=== PATIENT | female | born 1950 | race Caucasian/White ===

== ENCOUNTER 2024-04-18 19:03 | Inpatient (IN) | payer MEDICARE ==
[~2024-04-18] VITALS: Ht 172.7 cm; Wt 87.1 kg
[2024-04-18] MEDS: SODIUM CHLORIDE 0.9% 1,000 ML IV ONE (20:11)
[2024-04-18 20:24] LABS: BASOPHILS % 0.3 % (0.0-2.0); EOSINOPHILS % 0.1 % (0.0-5.0); HEMATOCRIT. 40.3 % (36.0-48.0); HEMOGLOBIN. 13.2 g/dL (12.0-16.0); LYMPHOCYTES % 8.7 % (20.0-50.0); MEAN CORPUSCULAR HEMOGLOBIN 28.1 pg (28.0-32.0); MEAN CORPUSCULAR HGB CONC 32.7 g/dL (31.0-37.0); MEAN CORPUSCULAR VOLUME 85.9 fL (81.0-99.0); MEAN PLATELET VOLUME 9.5 fl (7.4-10.4); MONOCYTES % 4.8 % (2.0-8.0); NEUTROPHILS % 86.1 % (40.0-76.0); PLATELET 307 x1000/uL (130-400); RED BLOOD CELL COUNT 4.68 mill/uL (4.2-5.4); RED CELL DISTRIBUTION WIDTH 16.1 % (11.6-14.6); WHITE BLOOD COUNT 8.7 x1000/uL (4.5-11.0)
[2024-04-18 20:33] LABS: CARBON DIOXIDE 25 mEq/L (21-32); CHLORIDE 98 mEq/L (98-107); POTASSIUM 3.8 mEq/L (3.5-5.1); SODIUM 133 mEq/L (136-145)
[2024-04-18 20:34] LABS: CALCIUM 11.7 mg/dL (8.7-10.4)
[2024-04-18 20:39] LABS: CREATININE 1.8 mg/dL (0.6-1.0); UREA NITROGEN BLOOD 17 mg/dL (9-23)
[2024-04-18 20:40] LABS: AMMONIA < 17 uMol/L (<32)
[2024-04-18 20:41] LABS: BETA HYDROXYBUTYRATE 3.3 mMol/L (0.0-0.3); CREATINE KINASE 22 IU/L (34-145)
[2024-04-18 20:43] LABS: THYROID STIMULATING HORMONE 3.19 uIU/mL (0.55-4.78)
[2024-04-18 20:47] LABS: ETHANOL BLOOD < 10 mg/dL (<10); GLUCOSE 452 mg/dL (70-105); TROPONIN I HIGH SENSITIVITY 44 ng/L (3.0-34)
[2024-04-18] MEDS: ASPIRIN 81MG TABLET PO NR (21:08)
[2024-04-18] MEDS ORDERED: LISI-186 PO (21:25)
[2024-04-18] MEDS ORDERED: ATOR40TA70 PO ×2 (21:25→21:43)
[2024-04-18] MEDS ORDERED: INSU100I94 SUBCUT ×2 (21:25→21:42)
[2024-04-18] MEDS ORDERED: METO25TA6 PO (21:25)
[2024-04-18] MEDS ORDERED: ISOS30TA91 PO (21:25)
[2024-04-18] MEDS ORDERED: ONDA4TAB50 PO (21:25)
[2024-04-18] MEDS ORDERED: HYDR25TA78 PO (21:25)
[2024-04-18] MEDS ORDERED: AMLO5TAB88 PO (21:25)
[2024-04-18] MEDS ORDERED: ENOX30DI4 SUBCUT ×2 (21:25→21:42)
[2024-04-18] MEDS ORDERED: INSU100I53 SUBCUT ×2 (21:25→21:42)
[2024-04-18] MEDS ORDERED: AMOX-494 PO ×2 (21:25→21:40)
[2024-04-18] MEDS ORDERED: MIRT-89 PO (21:25)
[2024-04-18] MEDS ORDERED: CLON0.1T PO ×2 (21:25→21:42)
[2024-04-18] MEDS ORDERED: HYDR50TA39 PO (21:25)
[2024-04-18] MEDS ORDERED: LEVO250T74 PO (21:25)
[2024-04-18] MEDS ORDERED: MAGNESIUM/ALUMINUM HYDROXIDE/SIMETHICONE 30ML UDC PO PRN (21:30)
[2024-04-18] MEDS ORDERED: DOCUSATE SODIUM 100MG CAPSULE PO PRN (21:30)
[2024-04-18] MEDS ORDERED: ONDANSETRON HCL 4MG/2ML INJ IV PRN (21:30)
[2024-04-18] MEDS ORDERED: IPRATROPIUM/ALBUTEROL 0.5-3(2.5)MG/3ML NEB HHN PRN (21:30)
[2024-04-18] MEDS ORDERED: ACETAMINOPHEN 325MG TABLET PO PRN (21:30)
[2024-04-18] MEDS ORDERED: DEXTROSE 50% WATER 50ML SYRINGE IV PRN (21:30)
[2024-04-18] MEDS ORDERED: CLONIDINE 0.1MG TABLET PO PRN (21:30)
[2024-04-18] MEDS ORDERED: GABA-532 PO (21:44)
[2024-04-18] MEDS ORDERED: PANT40TA51 PO (21:44)
[2024-04-18] MEDS: ENOXAPARIN 40MG/0.4ML SYR SUBCUT SCH (22:18)
[2024-04-18] MEDS: INSULIN GLARGINE 100 UNITS/ML SUBCUT SCH (22:18)
[2024-04-18] MEDS: INSULIN REGULAR (HUMULIN R) 1000UNITS/10ML VIAL SUBCUT NR (22:18)
[2024-04-18] MEDS: FAMOTIDINE 20MG/2ML VIAL IV SCH (22:19)
[2024-04-18] MEDS: AMLODIPINE 5MG TABLET PO SCH (22:24)
[2024-04-18] MEDS: SODIUM CHLORIDE 0.9% 1,000 ML IV SCH (22:24)
[2024-04-18 23:39] LABS: CLARITY URINE CLEAR (CLEAR); COLOR URINE YELLOW (YELLOW); GLUCOSE URINE 3+ (NEGATIVE); KETONES URINE 1+ (NEGATIVE); LEUKOCYTE ESTERASE URINE NEGATIVE (NEGATIVE); NITRITE URINE NEGATIVE (NEGATIVE); OCCULT BLOOD URINE NEGATIVE (NEGATIVE); PH URINE 5.5 (4.5-8.0); PROTEIN URINE 3+ (NEGATIVE); SPECIFIC GRAVITY URINE 1.025 (1.005-1.030)
[2024-04-19] MEDS: HYDRALAZINE 20MG/ML VIAL IV PRN (00:02)
[2024-04-19 00:24] LABS: ALBUMIN 3.7 g/dL (3.2-4.8)
[2024-04-19 05:54] LABS: BASOPHILS % 0.5 % (0.0-2.0); EOSINOPHILS % 1.6 % (0.0-5.0); HEMATOCRIT. 34.7 % (36.0-48.0); HEMOGLOBIN. 11.4 g/dL (12.0-16.0); LYMPHOCYTES % 19.6 % (20.0-50.0); MEAN CORPUSCULAR VOLUME 84.7 fL (81.0-99.0); MEAN PLATELET VOLUME 9.1 fl (7.4-10.4); MONOCYTES % 10.3 % (2.0-8.0); PLATELET 284 x1000/uL (130-400); RED BLOOD CELL COUNT 4.09 mill/uL (4.2-5.4); RED CELL DISTRIBUTION WIDTH 16.4 % (11.6-14.6); WHITE BLOOD COUNT 7.3 x1000/uL (4.5-11.0)
[2024-04-19 06:04] LABS: POTASSIUM 3.1 mEq/L (3.5-5.1)
[2024-04-19 06:05] LABS: CALCIUM 11.3 mg/dL (8.7-10.4)
[2024-04-19 06:10] LABS: CREATININE 1.2 mg/dL (0.6-1.0)
[2024-04-19 06:14] LABS: T4 FREE 1.31 ng/dL (0.89-1.76); THYROID STIMULATING HORMONE 2.84 uIU/mL (0.55-4.78)
[2024-04-19 06:20] LABS: SQUAMOUS EPITHELIAL CELL URINE FEW /lpf (RARE/1+)
[2024-04-19 06:26] LABS: BACTERIA URINE NONE SEEN; RBC URINE 0-2 /hpf (0-2)
[2024-04-19] MEDS: KCL 20MEQ/100ML PREMIX 100 ML IV SCH (07:00)
[2024-04-19] MEDS: INSULIN LISPRO 100 UNITS/ML SUBCUT SCH (08:52)
[2024-04-19] MEDS ORDERED: ENOXAPARIN 30MG/0.3ML SYR SUBCUT SCH (09:00)
[2024-04-19] MEDS: BLOOD SUGAR DIAGNOSTIC STRIP TEST SCH (09:03)
[2024-04-19] MEDS: ASPIRIN 81MG EC TABLET PO SCH (09:31)
[2024-04-19 10:01] LABS: PHOSPHORUS 1.6 mg/dL (2.5-4.9)
[2024-04-19] MEDS: INSULIN GLARGINE 100 UNITS/ML SUBCUT SCH (10:52)
[2024-04-19 10:54] VITALS: BP 166/59; PULSE 95; RESP 18; TEMP 36.6404
[2024-04-19 12:00] VITALS: BP 160/84; PULSE 93; RESP 20; TEMP 36.16956; O2SAT 100
[2024-04-19 13:14] LABS: TROPONIN I HIGH SENSITIVITY 66 ng/L (3.0-34)
[2024-04-19 16:00] VITALS: BP 140/93; PULSE 95; RESP 20; TEMP 36.55848; O2SAT 100
[2024-04-19 20:00] VITALS: BP 148/50; PULSE 97; RESP 20; TEMP 36.50292; O2SAT 100
[2024-04-20] VITALS: BP 179/83; PULSE 95; RESP 20; TEMP 36.89184; O2SAT 97
[2024-04-20 03:05] LABS: TROPONIN I HIGH SENSITIVITY 44 ng/L (3.0-34)
[2024-04-20 04:00] VITALS: BP 96/68; PULSE 103; RESP 18; TEMP 36.78072; O2SAT 98
[2024-04-20 06:54] LABS: CARBON DIOXIDE 26 mEq/L (21-32); CHLORIDE 105 mEq/L (98-107); POTASSIUM 3.4 mEq/L (3.5-5.1); SODIUM 140 mEq/L (136-145)
[2024-04-20 06:56] LABS: CALCIUM 10.5 mg/dL (8.7-10.4)
[2024-04-20 06:57] LABS: HEMATOCRIT 33.5 % (36.0-48.0); HEMOGLOBIN 10.8 g/dL (12.0-16.0); MEAN CORPUSCULAR HEMOGLOBIN 27.7 pg (28.0-32.0); MEAN CORPUSCULAR HGB CONC 32.3 g/dL (31.0-37.0); MEAN CORPUSCULAR VOLUME 85.9 fL (81.0-99.0); PLATELET 259 x1000/uL (130-400); RED CELL DISTRIBUTION WIDTH 16.7 % (11.6-14.6); WHITE BLOOD COUNT 5.8 x1000/uL (4.5-11.0)
[2024-04-20 07:00] LABS: GLUCOSE 181 mg/dL (70-105); UREA NITROGEN BLOOD 9 mg/dL (9-23)
[2024-04-20 07:03] LABS: PHOSPHORUS 1.7 mg/dL (2.5-4.9)
[2024-04-20 08:20] VITALS: BP 150/60; PULSE 81; RESP 18; TEMP 36.33624; O2SAT 99
[2024-04-20] MEDS: MAGNESIUM 4 G PREMIX 100 ML IV SCH (09:44)
[2024-04-20] MEDS: POTASSIUM PHOSPHATE 20 MMOL in DEXT 5% WATER 243.3333 ML IV SCH (11:57)
[2024-04-20 12:00] VITALS: BP 146/71; PULSE 89; RESP 20; TEMP 36.33624; O2SAT 98
[2024-04-20 16:00] VITALS: BP 156/53; PULSE 83; RESP 20; TEMP 36.6696; O2SAT 97
[2024-04-20 20:00] VITALS: BP 146/67; PULSE 86; RESP 18; TEMP 36.22512; O2SAT 97
[2024-04-20] MEDS: HYDRALAZINE HCL 25MG TABLET PO SCH (22:37)
[2024-04-20] MEDS: INSULIN GLARGINE 100 UNITS/ML SUBCUT SCH (22:45)
[2024-04-21] VITALS: BP 150/60; PULSE 94; RESP 19; TEMP 36.114; O2SAT 97
[2024-04-21 04:00] VITALS: BP 142/63; PULSE 86; RESP 18; TEMP 36.78072; O2SAT 98
[2024-04-21 07:11] LABS: CALCIUM 10.6 mg/dL (8.7-10.4); CARBON DIOXIDE 27 mEq/L (21-32); CHLORIDE 105 mEq/L (98-107); SODIUM 140 mEq/L (136-145)
[2024-04-21 07:16] LABS: IRON 41 ug/dL (50-170)
[2024-04-21 07:17] LABS: GLUCOSE 91 mg/dL (70-105); UREA NITROGEN BLOOD 9 mg/dL (9-23)
[2024-04-21 07:19] LABS: TOTAL IRON BINDING CAPACITY 292 ug/dl (250-425)
[2024-04-21] MEDS: INSULIN LISPRO 100 UNITS/ML SUBCUT SCH (07:40)
[2024-04-21] MEDS ORDERED: INSULIN LISPRO 100 UNITS/ML SUBCUT SCH (07:40)
[2024-04-21 07:48] LABS: HEMATOCRIT 34.2 % (36.0-48.0); MEAN CORPUSCULAR HEMOGLOBIN 27.4 pg (28.0-32.0); MEAN CORPUSCULAR HGB CONC 32.1 g/dL (31.0-37.0); MEAN CORPUSCULAR VOLUME 85.4 fL (81.0-99.0); PLATELET 287 x1000/uL (130-400); RED BLOOD CELL COUNT 4.01 mill/uL (4.2-5.4); RED CELL DISTRIBUTION WIDTH 16.9 % (11.6-14.6); WHITE BLOOD COUNT 6.4 x1000/uL (4.5-11.0)
[2024-04-21 08:00] VITALS: BP 148/78; PULSE 96; RESP 18; TEMP 36.6696; O2SAT 98
[2024-04-21] MEDS: INSULIN LISPRO (LOW DOSE) 100 UNITS/ML SUBCUT SCH (08:10)
[2024-04-21] MEDS ORDERED: LIDOCAINE HCL 1% 10 MG/ML 10ML VIAL ONE (08:33)
[2024-04-21] MEDS: POTASSIUM CHLORIDE 20MEQ TABLET SR PO NR (09:55)
[2024-04-21] MEDS ORDERED: INSULIN GLARGINE 100 UNITS/ML SUBCUT SCH (10:00)
[2024-04-21 11:44] VITALS: BP 132/59; PULSE 95; RESP 18; TEMP 35.89176; O2SAT 99
[2024-04-21 12:14] LABS: CORTISOL 19.4 ucg/dL
[2024-04-21 12:18] LABS: FOLIC ACID (FOLATE) SERUM 4.34 ng/mL (>5.38); VITAMIN B12 SERUM 641 pg/mL (211-911)
[2024-04-21 12:21] LABS: FERRITIN 601 ng/mL (10-291)
[2024-04-21] MEDS: POTASSIUM PHOSPHATE 30 MMOL in SODIUM CHLORIDE 0.9% 490 ML IV NR (14:04)
[2024-04-21 15:59] VITALS: BP 160/85; PULSE 89; RESP 20; TEMP 36.78072; O2SAT 98
[2024-04-21 20:00] VITALS: BP 136/62; PULSE 84; RESP 19; TEMP 36.22512; O2SAT 98
[2024-04-21] MEDS: ATORVASTATIN CALCIUM 40MG TABLET PO SCH (21:02)
[2024-04-22] VITALS (8 sets, daily range): BP systolic 132–159; BP diastolic 60–78; PULSE 80–94; RESP 18–20; TEMP 36.33624–37.05852; O2SAT 96–98
[2024-04-22] MEDS: INSULIN LISPRO 100 UNITS/ML SUBCUT SCH (07:15)
[2024-04-22 07:39] LABS: CARBON DIOXIDE 25 mEq/L (21-32); CHLORIDE 104 mEq/L (98-107); POTASSIUM 3.6 mEq/L (3.5-5.1); SODIUM 137 mEq/L (136-145)
[2024-04-22 07:40] LABS: CALCIUM 10.1 mg/dL (8.7-10.4)
[2024-04-22 07:44] LABS: CREATININE 0.9 mg/dL (0.6-1.0); GLUCOSE 106 mg/dL (70-105)
[2024-04-22 07:45] LABS: UREA NITROGEN BLOOD 5 mg/dL (9-23)
[2024-04-22 07:47] LABS: PHOSPHORUS 2.8 mg/dL (2.5-4.9)
[2024-04-22] MEDS: MAGNESIUM 2 G PREMIX 50 ML IV SCH (10:36)
[2024-04-22 13:07] LABS: C-PEPTIDE 0.3 ng/mL (1.1-4.4)
[2024-04-23] VITALS: BP 174/76; PULSE 90; RESP 20; TEMP 36.6696; O2SAT 100
[2024-04-23 04:13] VITALS: BP 137/74; PULSE 95; RESP 20; TEMP 36.78072; O2SAT 98
[2024-04-23 08:00] VITALS: BP 180/89; PULSE 85; RESP 18; TEMP 36.44736
[2024-04-23 08:40] VITALS: BP_SYST 135; BP_SYST 156; BP_DIAS 75; BP_DIAS 89
[2024-04-23 08:45] VITALS: BP 135/75
[2024-04-23 13:07] LABS: MICROALBUMIN RANDOM URINE 1512.1 ug/mL (Not Estab.)
[2024-04-25 13:06] LABS: GAD-65 AUTOANTIBODY < 5.0 U/mL (0.0-5.0)
== END 2024-04-23 09:25 | DRG 638 ==
LOC: ER 19:03 → 7WST 22:00
PROVIDERS: ADMIT Internal Medicine; ATTEND Internal Medicine
PROC: 02HV33Z Insertion of Infusion Device into Superior Vena Cava, Percutaneous Approach (ICD-10-PCS; principal; 2024-04-21)
PROC: B548ZZA Ultrasonography of Superior Vena Cava, Guidance (ICD-10-PCS; 2024-04-21)
PROC: B5181ZA Fluoroscopy of Superior Vena Cava using Low Osmolar Contrast, Guidance (ICD-10-PCS; 2024-04-21)
DX: E11.65 Type 2 diabetes mellitus with hyperglycemia (principal); I24.89 Other forms of acute ischemic heart disease; N17.9 Acute kidney failure, unspecified; I25.10 Atherosclerotic heart disease of native coronary artery without angina pectoris; E78.5 Hyperlipidemia, unspecified; I12.9 Hypertensive chronic kidney disease with stage 1 through stage 4 chronic kidney disease, or unspecified chronic kidney disease; I50.9 Heart failure, unspecified; K21.9 Gastro-esophageal reflux disease without esophagitis; D64.9 Anemia, unspecified; F32.A Depression, unspecified; E66.9 Obesity, unspecified; E83.52 Hypercalcemia; F03.90 Unspecified dementia, unspecified severity, without behavioral disturbance, psychotic disturbance, mood disturbance, and anxiety; E83.39 Other disorders of phosphorus metabolism; E87.6 Hypokalemia; E83.42 Hypomagnesemia; E87.5 Hyperkalemia; Z74.01 Bed confinement status; Z79.4 Long term (current) use of insulin; Z79.82 Long term (current) use of aspirin; Z79.899 Other long term (current) drug therapy; Z68.29 Body mass index [BMI] 29.0-29.9, adult; Z95.1 Presence of aortocoronary bypass graft
CPT/HCPCS: 36415; 36573; 71045; 80048; 80061; 80320; 81003; 82010; 82024; 82040; 82043; 82140; 82330; 82533; 82550; 82570; 82607; 82728; 82746; 82962; 83036; 83519; 83540; 83550; 83605; 83735; 83930; 83970; 84100; 84155; 84165; 84439; 84443; 84484; 84681; 85025; 85027; 92610; 93005; 93306; 93970; 97162; 97165; 99291; C1725; C1893; J0360; J1650; J1815; J3475; J3480; J3490; J7030; J7040; J7060; G0480